=== PATIENT | male | born 1965 | race Caucasian/White ===

== ENCOUNTER 2020-09-26 14:43 | Outpatient (CLI) | payer BC ==
[2020-09-26 16:02] LABS: #Basophils 0.1 10x3/uL (0.0-0.2); #Eosinphils 0.4 10x3/uL (0.0-0.5); #Monocytes 0.8 10x3/uL (0.0-1.1); #Neutrophils 3.6 10x3/uL (1.5-8.4); %Eosinophils 5.2 % (0.0-6.0); %Lymphocytes 29.5 % (18.0-47.0); %Monocytes 11.5 % (0.0-10.0); %Neutrophils 52.5 % (40.0-75.0); Hemoglobin 15.6 g/dL (13.5-17.5); Mean Corpuscular HGB CONC 35.2 g/dL (32.0-36.0); Mean Corpuscular Hemoglobin 35.5 pg (27.0-33.0); Mean Corpuscular Volume 100.7 fl (81.2-95.1); Mean Platelet Volume 10.9 fl (7.4-10.4); Platelet Count 313 10x3/uL (150-450); RBC Distribution Width 12.2 % (11.5-14.5); White Blood Cell (WBC) Count 6.9 10x3/uL (3.5-10.5)
[2020-09-26 16:15] LABS: Anion Gap 12 mmol/L (10-20); BUN (Urea Nitrogen) 9 mg/dL (8.4-25.7); Calc. Creatinine Clearance 0 mL/min (70-130); Calcium 9.1 mg/dL (7.8-10.44); Carbon Dioxide 25 mmol/L (22-29); Chloride 107 mmol/L (98-107); Glucose 72 mg/dL (70-105); Potassium 4.2 mmol/L (3.5-5.1); Sodium 140 mmol/L (136-145)
[2020-09-27 00:04] LABS: SARS-CoV-2 NAA Rapid Test Not Detected (NotDetected)
== END 2020-09-26 14:44 | disposition home or self-care (01) ==
LOC: LABBT 14:43
PROVIDERS: ATTEND Surgery
DX: Z01.812 Encounter for preprocedural laboratory examination (principal); C44.519 Basal cell carcinoma of skin of other part of trunk; Z20.822 Contact with and (suspected) exposure to COVID-19
CPT/HCPCS: 80048; 85025; U0002; U0005

== ENCOUNTER 2020-09-29 09:44 | Day surgery (SDC) | payer BC ==
[2020-09-27 15:22] VITALS: BMI 25.8
[2020-09-29] MEDS ORDERED: Lidocaine 1% w/Epinephrine 1:100K 20 ML VIAL ONE (12:00)
[2020-09-29] MEDS ORDERED: Bupivacaine 0.25% HCL 30 ML VIAL ONE (12:00)
[2020-09-29] MEDS ORDERED: Fentanyl 100 MCG/2 ML VIAL ONE (12:18)
[2020-09-29] MEDS ORDERED: Midazolam HCl 2 mg/2 ml Vial ONE (12:18)
[2020-09-29] MEDS ORDERED: Ondansetron PF 4 MG/2 ML Vial ONE (12:34)
[2020-09-29] MEDS ORDERED: Glycopyrrolate 0.2 MG/ML 5 ML SYRINGE ONE (12:34)
[2020-09-29] MEDS ORDERED: Dexamethasone 20 MG/5 ML VIAL ONE (12:34)
[2020-09-29] MEDS ORDERED: ePHEDrine Sulfate 50 MG/10 ML VIAL ONE (12:34)
[2020-09-29] MEDS ORDERED: Lidocaine 1% PF 5 ML VIAL ONE (12:34)
[2020-09-29] MEDS ORDERED: PROPOFOL 200 MG/20 ML VIAL ONE (12:34)
[2020-09-29] MEDS ORDERED: Ketorolac Tromethamine 30 MG/ML VIAL ONE (12:34)
[2020-09-29] MEDS ORDERED: diphenhydrAMINE 50 MG/ML VIAL ONE (12:34)
== END 2020-09-29 15:47 | disposition home or self-care (01) ==
LOC: SDC 09:44
PROVIDERS: ATTEND Surgery
PROC: 0HB5XZZ Excision of Chest Skin, External Approach (ICD-10-PCS; principal; 2020-09-29)
DX: C44.519 Basal cell carcinoma of skin of other part of trunk (principal); Z79.899 Other long term (current) drug therapy
CPT/HCPCS: 88305; 88331; 88332; J0690; J1100; J1200; J1885; J2250; J2405; J2704; J3010; S0020